=== PATIENT | female | born 1980 | race Caucasian/White ===

== ENCOUNTER 2016-05-06 11:41 | Emergency (ER) | payer SELFPAY ==
[2016-05-06 13:40] VITALS: BP 139/82
--- NOTE | 2016-05-06 13:52 | UC ---
Back Pain HPI - HPI Summary HPI Summary: Fell getting out of her car a little ocer i week ago--has been taking IBUPROFEN AND FLEXERIL WITH RELIEF OF PAIN, IS CONCERNED ABOUT A BURNING PAIN SHE HAS IN THE RIGHT SIDE OF HER LOWER BACK - History of Current Complaint Chief Complaint: UCBackPain Stated Complaint: BACK PAIN Time Seen by Provider: 05/06/16 13:43 Hx Obtained From: Patient Hx Last Menstrual Period: 05/05/16 ?: No Onset/Duration: Sudden Onset, Lasting Days, Still Present Timing: Constant Severity Initially: Moderate Severity Currently: Mild Pain Intensity: 5 Pain Scale Used: 0-10 Numeric Back Pain: Is Discrete @ - LUMBAR BACK AND RIGHT SIDE OF HIP Character: Aching, Stiffness, Burning Aggravating: Movement, Lifting Alleviating: Rest, OTC Meds Associated Signs And Symptoms: Positive: Numbness - SOMETIMES FEELS NUMBNESS IN HER LEGS - Allergies/Home Medications Allergies/Adverse Reactions: Allergies Allergy/AdvReac Type Severity Reaction Status Date / Time Acetaminophen [From Percocet] Allergy Severe Hives Verified 12/03/12 12:15 Morphine Allergy Severe Hives Verified 12/03/12 12:15 Oxycodone [From Percocet] Allergy Severe Hives Verified 12/03/12 12:15 Propoxyphene Allergy Severe Hives Verified 12/03/12 12:15 [From Darvocet-N] Ciprofloxacin [From Cipro] Allergy Intermediate Rash Verified 12/03/12 12:15 Nitrofurantoin Allergy Intermediate Rash Verified 12/03/12 12:15 [From Macrobid] Lamotrigine [From Lamictal] Allergy Swelling Verified 05/06/16 13:40 Of Face,Lips,& Throat Tramadol AdvReac Severe dizzy Verified 12/03/12 12:15 Home Medications: Home Medications Alprazolam [Xanax] 0.5 mg PO 05/06/16 [History] Cyclobenzaprine TAB* [Flexeril TAB*] 10 mg PO BID PRN 05/06/16 [History Confirmed 05/06/16] PMH/Surg Hx/FS Hx/Imm Hx Endocrine History Of: Denies: Diabetes, Thyroid Disease Cardiovascular History Of: Denies: Cardiac Disorders, Hypertension Respiratory History Of: Denies: COPD, Asthma GI/ History Of: Denies: Ulcer Psychological History Of: Reports: Bipolar Disorder - Surgical History Surgical History: Yes Surgery Procedure, Year, and Place: 3 c-sections, hernia repair - Family History Known Family History: Positive: None Family History: DENIES CARDIOVASCULAR ISSUES IN FAMILY LINEAGE - Social History Occupation: Employed Full-time Lives: With Family Alcohol Use: Occasionally Substance Use Type: None Smoking Status (MU): Heavy Every Day Tobacco Smoker Type: Cigarettes Review of Systems Constitutional: Negative Skin: Negative Eyes: Negative ENT: Negative Respiratory: Negative Cardiovascular: Negative Gastrointestinal: Negative Genitourinary: Negative Motor: Negative Neurovascular: Negative Musculoskeletal: Myalgia - lower back Neurological: Negative Psychological: Negative All Other Systems Reviewed And Are Negative: Yes Physical Exam Triage Information Reviewed: Yes Appearance: Well-Appearing, No Pain Distress, Well-Nourished Vital Signs: Initial Vital Signs Temp 98.2 F 05/06/16 13:34 Pulse 95 05/06/16 13:34 Resp 18 05/06/16 13:34 BP 139/82 05/06/16 13:34 Pulse Ox 100 05/06/16 13:34 Vital Signs Reviewed: Yes Eye Exam: Normal Eyes: Positive: Conjunctiva Clear ENT Exam: Normal ENT: Positive: Normal ENT inspection, Hearing grossly normal. Negative: Nasal congestion, Nasal drainage, Trismus, Muffled/hoarse voice Neck exam: Normal Neck: Positive: Supple, Nontender Respiratory Exam: Normal Respiratory: Positive: Chest non-tender, No respiratory distress, No accessory muscle use Cardiovascular Exam: Normal Cardiovascular: Positive: RRR, Pulses Normal, Brisk Capillary Refill Musculoskeletal Exam: Normal Musculoskeletal: Positive: Strength Intact, ROM Intact, No Edema Neurological Exam: Normal Neurological: Positive: Alert, Muscle Tone Normal Psychological Exam: Normal Skin Exam: Normal Back Pain Course/Dx - Course Course Of Treatment: ibuprofen, flexeril, follow with pcp for additional imaging if sx fail to resolve - Differential Dx/Diagnosis Differential Diagnosis/HQI/PQRI: Fracture, Herniated Disc, Strain, Sprain Provider Diagnoses: Lumbar pain, muscle spasm Discharge - Discharge Plan Condition: Stable Disposition: HOME Prescriptions: Cyclobenzaprine TAB* [Flexeril TAB*] 10 mg PO TID PRN #15 tab PRN Reason: muscle spasm Ibuprofen TAB* [Motrin TAB* 600 MG] 600 mg PO Q6H PRN #24 tab PRN Reason: pain Patient Education Materials: Low Back Strain (ED), Acute Low Back Pain (ED), Lumbar Radiculopathy (ED), Lower Back Exercises (ED) Referrals: Scott Carrasco DC [Doctor of Chiropractic] - 4 Days
--- NOTE | 2016-05-06 14:48 | RAD ---
HISTORY: Fall, injury, burning pain, back pain, subacute trauma COMPARISONS: None VIEWS: 5 , Frontal, lateral, coned-down lateral sacral, and bilateral oblique views of the lumbar spine. FINDINGS: ALIGNMENT: There is straightening of the normal lumbar lordosis. VERTEBRAL BODIES: The vertebral body heights are normal. The interpedicular distances are normal. JOINTS: The facet joints are normal. INTERVERTEBRAL DISCS: The intervertebral disc heights are normal. SOFT TISSUE: Unremarkable. OTHER: The pelvis is unremarkable. The lung bases are clear. IMPRESSION: STRAIGHTENING OF THE LUMBAR LORDOSIS.
== END 2016-05-06 15:22 | disposition home or self-care (01) ==
LOC: UCEAST 11:41
DX: M54.5 Low back pain (principal); M62.830 Muscle spasm of back; Z88.6 Allergy status to analgesic agent; Z88.5 Allergy status to narcotic agent; Z88.1 Allergy status to other antibiotic agents; F17.210 Nicotine dependence, cigarettes, uncomplicated
CPT/HCPCS: 72110; 99202; G0463